=== PATIENT | female | born 1995 | race Hispanic/Latino ===

== ENCOUNTER 2023-08-06 12:56 | Emergency (ER) | payer OTHER ==
[~2023-08-06] VITALS: Ht 165.1 cm; Wt 108.9 kg
[2023-08-06 13:28] LABS: BASOPHILS # (AUTO) 0.05 K/uL (0.00-0.20); BASOPHILS % (AUTO) 0.4 % (0.0-5.0); EOSINOPHILS # (AUTO) 0.29 K/uL (0.00-0.70); EOSINOPHILS % (AUTO) 2.1 % (0.0-8.0); HEMATOCRIT 31.9 % (36-48); IMMATURE GRANULOCYTE ABSOLUTE 0.07 K/uL (0-1); LYMPHOCYTES # (AUTO) 3.4 K/uL (1.0-4.8); LYMPHOCYTES % (AUTO) 24.7 % (21.0-51.0); MEAN CORPUSCULAR HEMOGLOBIN 24.2 pg (27.0-33.0); MEAN CORPUSCULAR HGB CONC 32.9 g/dL (32.0-36.0); MEAN CORPUSCULAR VOLUME 73.5 fL (79-99); MONOCYTES % (AUTO) 7.2 % (3.0-13.0); NEUTROPHILS % (AUTO) 65.1 % (40.0-77.0); PLATELET COUNT (AUTO) 443 K/uL (130-400); RED BLOOD CELL COUNT(AUTO) 4.34 MIL/uL (4.00-5.50); WHITE BLOOD COUNT (AUTO) 13.8 K/uL (4.8-10.8)
[2023-08-06] MEDS ORDERED: 0.9%NACL 1000ML 1,000 ML IV ONE (13:30)
[2023-08-06 13:39] LABS: CREATININE 0.6 mg/dL (0.5-1.5); POTASSIUM 3.6 mmol/L (3.5-5.1)
[2023-08-06 13:44] LABS: ALBUMIN 3.5 g/dL (3.5-5.0); BILIRUBIN,TOTAL 0.3 mg/dL (0.2-1.0); TOTAL PROTEIN, SERUM 7.5 g/dL (6.0-8.3)
[2023-08-06 13:45] LABS: INR < 0.93 (0.85-1.15); PROTHROMBIN TIME 10.3 SEC (9.6-11.6)
[2023-08-06 13:46] LABS: PARTIAL THROMBOPLASTIN TIME 28.2 SEC (26.3-35.5)
[2023-08-06 13:51] LABS: APPEARANCE,URINE CLEAR (CLEAR); BILIRUBIN,URINE NEGATIVE (NEGATIVE); COLOR,URINE LIGHT-YELLOW (YELLOW); GLUCOSE, URINE (UA) NEGATIVE (NEGATIVE); KETONES,URINE NEGATIVE (NEGATIVE); LEUKOCYTE ESTERASE ,URINE NEGATIVE Leu/uL (NEGATIVE); NITRATE,URINE NEGATIVE (NEGATIVE); OCCULT BLOOD,URINE NEGATIVE (NEGATIVE); PH,URINE 5.5 (5.0-8.0); PROTEIN,URINE NEGATIVE (NEGATIVE); UROBILINOGEN,URINE 0.2 mg/dL (0.2-1.0)
[2023-08-06 14:00] LABS: ADD UA MICROSCOPIC NO
[2023-08-06 14:04] LABS: HCG,QUALITATIVE URINE NEGATIVE (NEGATIVE)
[2023-08-06] MEDS ORDERED: KETOROLAC 60 MG VIAL (30MG/ML) IM ONE (17:00)
[2023-08-06] MEDS ORDERED: LACT10SO9 PO (18:06)
[2023-08-06 18:08] VITALS: BP 127/80; PULSE 94; RESP 18; O2SAT 98
== END 2023-08-06 18:11 | disposition home or self-care (01) ==
LOC: EDH 12:56
DX: K59.00 Constipation, unspecified (principal); R10.31 Right lower quadrant pain; Z98.890 Other specified postprocedural states
CPT/HCPCS: 99285; 74176; 96360; 82550; 80053; 83690; 85025; 85610; 85730; 87040 ×2; 87088; 83605; 81003; 81025; 36415; 96372; J7030; J1885; 96361

== ENCOUNTER 2025-01-21 22:18 | Emergency (ER) | payer SELFPAY ==
[~2025-01-21] VITALS: Ht 165.1 cm; Wt 99.8 kg
[~2025-01-21 22:18] MED LIST: LACT10SO9 PO
[2025-01-21] MEDS ORDERED: IOHEXOL-350 75 ML VIAL IV ONE (22:19)
--- NOTE | 2025-01-21 22:21 | NUR ---
UA CUP PROVIDED
--- NOTE | 2025-01-21 23:06 | ERN ---
General Chief Complaint: Flank Pain Stated Complaint: LEFT FLANK PAIN Time Seen by MD: 22:23 Source: patient History of Present Illness Initial Comments 29-year-old female with left posterior iliac spinal pain fit them migrates arrived to the front. Patient says that it has been coming and going for the last year. This time is the worst that it has been. It is associated with a sensation of chills and muscle cramping. Nothing seems to make the pain go away. Drinking alcohol seems to make the pain episodes more common. Patient notes that one year ago, when these pain episodes started, she had a CT scan which showed a lesion on her left adrenal gland. Patient reports no other associated symptoms: No fevers no cough no sneezing no change in bowel habits no nausea vomiting or diarrhea. No itching or burning when urinating. Although sometimes when she urinates she feels pain in her left flank. Allergies: Coded Allergies: No Known Allergies (Unverified Allergy, Unknown, 08/06/23) Home Meds Active Scripts Lactulose (Lactulose) 20 Gram/30 Ml Solution, 20 GM PO TID for 7 Days, #630 ML Prov:MELISSA LAKHANI MD 08/06/23 Past Medical History Past Medical History: No Pertinent History, Other Medical History Other: PULMONAYR EMBOLISM, LEFT ADRENAL MASS Past Surgical History: Other Surgical History Other: UTERINE ABLASION Social History Social History: Negative Constitutional: (+) chills EENTM: (-) eye pain, (-) blurred vision, (-) tearing, (-) double vision, (-) ear pain, (-) ear discharge, (-) nose pain, (-) nose congestion, (-) throat pain, (-) Throat swelling, (-) mouth pain, (-) tooth pain, (-) mouth swelling, (-) other documentation Respiratory: (-) cough, (-) orthopnea, (-) short of breath, (-) stridor, (-) wheezing, (-) other documentation Cardiovascular: (-) chest pain, (-) edema, (-) palpitations, (-) syncope, (-) dyspnea on exertion, (-) other documentation Gastrointestinal/Abdominal: (-) nausea, (-) vomiting, (-) diarrhea, (-) abdominal pain, (-) abdominal distention, (-) constipation, (-) rectal bleeding, (-) dark stool/melena, (-) other documentation Genitourinary: (-) vaginal discharge, (-) vaginal bleeding, (-) dysuria, (-) frequency, (-) hematuria, (-) pain, (-) other documentation Musculoskeletal: (-) Neck pain, (-) back pain, (-) Flank Pain, (-) joint pain, (-) joint swelling, (-) muscle pain, (-) muscle stiffness, (-) gout, (-) other documentation Skin: (-) laceration, (-) contusion, (-) abrasion, (-) abscess, (-) rash, (-) change in color, (-) change in hair, (-) change in nails, (-) diaphoresis, (-) dryness, (-) other documentation Neuro: (-) altered mental status, (-) headache, (-) syncope, (-) paralysis, (-) numbness, (-) seizure, (-) pre-existing deficit, (-) tremors, (-) weakness, (-) dizziness, (-) slurred speech, (-) vertigo, (-) other documentation Physical Exam General Appearance: (+) no apparent distress Orientation: (+) alert Head/Face Trauma: No Eye: bilateral eye normal inspection, bilateral eye PERRL, bilateral eye EOMI Ear, Nose, Throat: (+) hearing grossly normal, (+) normal ENT inspection, (+) moist mucous membraine Neck: (+) normal inspection, (+) supple, (+) full range of motion, (+) no JVD Respiratory: (+) chest non-tender, (+) lungs clear, (+) well ventilated Heart: (+) regular, (+) no gallop Vascular: (+) no edema, (+) normal peripheral pulse, (+) no JVD Gastrointestinal: (+) soft, (+) non-tender, (+) no organomegaly, (+) bowel sound present Gastrointestinal Comment Patient does have tenderness on the posterior superior iliac spine and little flank abdominal tenderness Results Laboratory and Microbiology Lab and Micro Result Laboratory Tests Test 01/21/25 23:13 White Blood Count 7.8 K/uL (4.8-10.8) Red Blood Count 4.85 MIL/uL (4.00-5.50) Hemoglobin 11.4 g/dL (12.0-16.0) L Hematocrit 36.4 % (36-48) Mean Corpuscular Volume 75.1 fL (79-99) L Mean Corpuscular Hemoglobin 23.5 pg (27.0-33.0) L Mean Corpuscular Hemoglobin Concent 31.3 g/dL (32.0-36.0) L Red Cell Distribution Width 18.5 % (11.0-15.5) H Platelet Count 327 K/uL (130-400) Mean Platelet Volume 11.0 fL (7.5-10.5) H Immature Granulocyte % (Auto) 0.4 % (0-1) Neutrophils (%) (Auto) 54.4 % (40.0-77.0) Lymphocytes (%) (Auto) 33.1 % (21.0-51.0) Monocytes (%) (Auto) 7.6 % (3.0-13.0) Eosinophils (%) (Auto) 4.0 % (0.0-8.0) Basophils (%) (Auto) 0.5 % (0.0-5.0) Neutrophils # (Auto) 4.2 K/uL (1.8-7.7) Lymphocytes # (Auto) 2.6 K/uL (1.0-4.8) Monocytes # (Auto) 0.6 K/uL (0.1-1.0) Eosinophils # (Auto) 0.31 K/uL (0.00-0.70) Basophils # (Auto) 0.04 K/uL (0.00-0.20) Absolute Immature Granulocyte (auto 0.03 K/uL (0-1) Nucleated Red Blood Cells 0.0 % (0.0-0.19) Red Blood Cell Morphology See comments Urine Color LIGHT-YELLOW (YELLOW) Urine Appearance CLEAR (CLEAR) Urine pH 6.5 (5.0-8.0) Urine Specific [place] 1.017 (1.001-1.031) Urine Protein NEGATIVE mg/dL (NEGATIVE) Urine Glucose (UA) NEGATIVE mg/dL (NEGATIVE) Urine Ketones NEGATIVE mg/dL (NEGATIVE) Urine Occult Blood NEGATIVE (NEGATIVE) Urine Nitrate NEGATIVE (NEGATIVE) Urine Bilirubin NEGATIVE mg/dL (NEGATIVE) Urine Urobilinogen 0.2 mg/dL (0.2-1.0) Urine Leukocyte Esterase NEGATIVE Misbah/uL Urine HCG, Qualitative NEGATIVE (NEGATIVE) Sodium Level 138 mmol/L (136-145) Potassium Level 4.0 mmol/L (3.5-5.1) Chloride Level 106 mmol/L (101-111) Carbon Dioxide Level 26 mmol/L (21-32) Blood Urea Nitrogen 11 mg/dL (7-18) Creatinine 0.6 mg/dL (0.5-1.0) Glomerular Filtration Rate Calc 124 mL/min (>90) Random Glucose 95 mg/dL (70-105) Total Calcium 8.8 mg/dL (8.5-10.1) MDM Left flank pain of unclear cause. I will get the usual chemistry panel CBC UA periods also get a CT scan with and without IV contrast to evaluate for renal stones and the adrenal mass. Patient's UA is negative. Patient's chemistry panel is negative patient's CBC is negative. Patient's CT scan shows the left 4 cm x 2 cm perinephric possible adrenal mass. In the pelvis there seems to be a fibroid and a mass also near the uterus. And none of these lesions can explain the patient's pain. Patient did say that the Flexeril brought her pain down quite a bit just did not bring it down to 0. This makes me suspicious that patient's pain is musculoskeletal in origin; al though, I can not rule out other causes. Unfortunately the CT scan is not revealing other causes ED Course Orders Procedure Category Date Status Time Basic Metabolic Panel LAB 01/21/25 Complete 23:06 Cbc With Differential LAB 01/21/25 Complete 23:06 ,Urine Test LAB 01/21/25 Complete 23:06 Urinalysis Profile LAB 01/21/25 Complete 23:06 Ct Abdomen/Pelvis CT 01/21/25 Resulted W/Wo Contras 23:06 Cyclobenzaprine Hcl PHA 01/21/25 Complete (Cyclobenzaprine Hcl 23:30 Iohexol (Omnipaque) PHA 01/22/25 Complete 00:01 Current Medications Medications (Trade) Dose Ordered Sig/Valentin Route PRN Reason Start Time Stop Time Status Last Admin Dose Admin Cyclobenzaprine HCl (Cyclobenzaprine HCl) 10 mg ONCE ONCE PO 01/21/25 23:30 01/21/25 23:31 DC 01/22/25 00:05 Iohexol (Omnipaque) 75 ml STK-MED ONCE IV 01/22/25 00:01 01/22/25 00:05 DC Vital Signs Date Time Temp Pulse Resp B/P (MAP) Pulse Ox O2 Delivery O2 Flow Rate FiO2 01/22/25 00:05 98.2 92 18 133/80 99 Room Air* 0 21 01/21/25 22:19 98.2 96 20 163/100 99 Room Air DX & DISP Disposition: Discharge Departure Impression: Primary Impression: Left flank pain Condition: Stable Additional Instructions: Please follow-up with your back tender paper machine regarding the two possible masses in your pelvis. And also with your oncologist regarding the adrenal mass. Referrals: KEYONA DIAZ (PCP) TONI MCDERMOTT MD January 21, 2025 23:06
[2025-01-21 23:32] LABS: ADD UA MICROSCOPIC NO; APPEARANCE,URINE CLEAR (CLEAR); BILIRUBIN,URINE NEGATIVE (NEGATIVE); COLOR,URINE LIGHT-YELLOW (YELLOW); GLUCOSE, URINE (UA) NEGATIVE (NEGATIVE); KETONES,URINE NEGATIVE (NEGATIVE); LEUKOCYTE ESTERASE ,URINE NEGATIVE Leu/uL (NEGATIVE); NITRATE,URINE NEGATIVE (NEGATIVE); OCCULT BLOOD,URINE NEGATIVE (NEGATIVE); PH,URINE 6.5 (5.0-8.0); PROTEIN,URINE NEGATIVE (NEGATIVE); UROBILINOGEN,URINE 0.2 mg/dL (0.2-1.0)
[2025-01-21 23:35] LABS: HCG,QUALITATIVE URINE NEGATIVE (NEGATIVE)
[2025-01-21 23:36] LABS: CREATININE 0.6 mg/dL (0.5-1.0)
--- NOTE | 2025-01-21 23:39 | NUR ---
ASSUMED PT CARE AT THIS TIME
[2025-01-22] MEDS ORDERED: IOHEXOL-350 75 ML VIAL IV ONE (00:01)
[2025-01-22] MEDS: CYCLOBENZAPRINE HCL 10 MG TABLET PO ONE (00:05)
--- NOTE | 2025-01-22 00:31 | HMCIMG ---
CT ABDOMEN/PELVIS W/WO CONTRAS HISTORY: Left lower abdominal pain COMPARISON: None TECHNIQUE: Multiple sequential axial images of the abdomen and pelvis were obtained from the dome of the diaphragm through symphysis pubis. Patient was not given contrast through intravenous route. Oral contrast was not given. FINDINGS: No pleural effusion is seen bilaterally. There is no evidence of parenchymal disease or pulmonary nodule of the visualized lower lungs. Degenerative changes of the thoracolumbar spine are present. The heart is not enlarged. The liver, spleen, adrenal glands and pancreas are unremarkable. There is no evidence of hydronephrosis bilaterally. No evidence of renal stone is seen. Fecal material is seen in the colon. There are normal size retroperitoneal and mesenteric lymph nodes. No ascites is seen. Atherosclerotic changes are present. Hypodense oval-shaped nodule is seen in the left uterus measuring 3.4 x 2.7 cm may be related to fibroid. Pelvic sidewalls are symmetric bilaterally. There is fluid distended. There is exophytic mass arising from the uterus measuring 7 x 7.6 cm fibroid. IMPRESSION: 1. Fibroid uterus. No ascites. CT was performed with one or more following dose reduction techniques: automated exposure control, adjustment of the mA and kv according to patient's size, or use of a iterative reconstruction technique.
[2025-01-22 00:33] LABS: BASOPHILS # (AUTO) 0.04 K/uL (0.00-0.20); BASOPHILS % (AUTO) 0.5 % (0.0-5.0); EOSINOPHILS # (AUTO) 0.31 K/uL (0.00-0.70); HEMATOCRIT 36.4 % (36-48); IMMATURE GRANULOCYTE ABSOLUTE 0.03 K/uL (0-1); LYMPHOCYTES # (AUTO) 2.6 K/uL (1.0-4.8); LYMPHOCYTES % (AUTO) 33.1 % (21.0-51.0); MEAN CORPUSCULAR HEMOGLOBIN 23.5 pg (27.0-33.0); MEAN CORPUSCULAR HGB CONC 31.3 g/dL (32.0-36.0); MEAN CORPUSCULAR VOLUME 75.1 fL (79-99); MONOCYTES # (AUTO) 0.6 K/uL (0.1-1.0); MONOCYTES % (AUTO) 7.6 % (3.0-13.0); NEUTROPHILS # (AUTO) 4.2 K/uL (1.8-7.7); NEUTROPHILS % (AUTO) 54.4 % (40.0-77.0); PLATELET COUNT (AUTO) 327 K/uL (130-400); RED BLOOD CELL COUNT(AUTO) 4.85 MIL/uL (4.00-5.50); RED CELL DISTRIBUTION WIDTH 18.5 % (11.0-15.5); WHITE BLOOD COUNT (AUTO) 7.8 K/uL (4.8-10.8)
[2025-01-22 02:02] VITALS: BP 132/72; PULSE 84; RESP 16; TEMP 98; O2SAT 99
== END 2025-01-22 02:03 | disposition home or self-care (01) ==
LOC: EDH 22:18
DX: D25.9 Leiomyoma of uterus, unspecified (principal); R10.84 Generalized abdominal pain; Z79.899 Other long term (current) drug therapy; Z98.890 Other specified postprocedural states
CPT/HCPCS: 99285; 74178; 80048; 85025; 81003; 81025; 36415; Q9967